=== PATIENT | female | born 1950 | race Caucasian/White ===

== ENCOUNTER 2016-12-03 20:30 | Emergency (ER) | payer OTHER, MEDICARE ==
[~2016-12-03] VITALS: Ht 162.6 cm; Wt 72.6 kg
[~2016-12-03 20:30] MED LIST: ATIVAN0.5 MG PO; GLUCOSAMINE &1 EAC1 PO; HYDROCHLOROTHIA25 MG PO; IPRAT-ALBUT 0.5-3 ML INH; LANTUS100 UNIT/1 SUBCUT; MOBIC15 MG PO; NASONEX17 GM NASLF; PHENERGAN25 M1 PO; PREDNISONE10 MG PO; PROAIR HFA8.5 GM INH; SYNTHROID125 MCG PO; ULTRAM50 MG PO; [UNRECOGNIZED DRUG - CODE] INH
[2016-12-04] MEDS ORDERED: ARAVA20 MG PO ×2 (16:00→16:31)
[2016-12-04] MEDS ORDERED: VISINE15 ML EYEBOTH (16:24)
[2016-12-04] MEDS ORDERED: NASONEX17 GM NASLF (16:24)
[2016-12-04] MEDS ORDERED: MOBIC15 MG PO (16:26)
[2016-12-04] MEDS ORDERED: DUONEB 3.0-0.5 M3 ML INH (16:27)
[2016-12-04] MEDS ORDERED: [UNRECOGNIZED DRUG - CODE] INH (16:27)
[2016-12-04] MEDS ORDERED: XOPENEX1.25 MG/3 INH (16:27)
[2016-12-04] MEDS ORDERED: PROAIR HFA8.5 GM INH (16:28)
[2016-12-04] MEDS ORDERED: LANTUS100 UNIT/1 SUBCUT (16:29)
[2016-12-04] MEDS ORDERED: GLUCOSAMINE &1 EAC1 PO (16:30)
[2016-12-04] MEDS ORDERED: HYDROCHLOROTHIA25 MG PO (16:30)
[2016-12-04] MEDS ORDERED: SYNTHROID125 MCG PO (16:30)
== END 2016-12-03 23:00 | disposition short-term general hospital (02) ==
LOC: ER 20:30
DX: K52.9 Noninfective gastroenteritis and colitis, unspecified (principal)
CPT/HCPCS: J2405

== ENCOUNTER 2016-12-04 14:49 | Inpatient (IN) | payer OTHER, MEDICARE ==
[~2016-12-04] VITALS: Ht 160 cm; Wt 75.8 kg
[2016-12-04] MEDS ORDERED: ARAVA20 MG PO ×2 (16:00→16:31)
[2016-12-04] MEDS ORDERED: NASONEX17 GM NASLF (16:24)
[2016-12-04] MEDS ORDERED: VISINE15 ML EYEBOTH (16:24)
[2016-12-04] MEDS ORDERED: MOBIC15 MG PO (16:26)
[2016-12-04] MEDS ORDERED: [UNRECOGNIZED DRUG - CODE] INH (16:27)
[2016-12-04] MEDS ORDERED: DUONEB 3.0-0.5 M3 ML INH (16:27)
[2016-12-04] MEDS ORDERED: XOPENEX1.25 MG/3 INH (16:27)
[2016-12-04] MEDS ORDERED: PROAIR HFA8.5 GM INH (16:28)
[2016-12-04] MEDS ORDERED: LANTUS100 UNIT/1 SUBCUT (16:29)
[2016-12-04] MEDS ORDERED: GLUCOSAMINE &1 EAC1 PO (16:30)
[2016-12-04] MEDS ORDERED: HYDROCHLOROTHIA25 MG PO (16:30)
[2016-12-04] MEDS ORDERED: SYNTHROID125 MCG PO (16:30)
[2016-12-06] MEDS ORDERED: ASPIRIN325 MG PO (13:21)
[2016-12-06] MEDS ORDERED: ULTRAM50 MG PO (13:24)
[2016-12-06] MEDS ORDERED: TYLENOL500 MG PO (13:25)
[2016-12-06] MEDS ORDERED: ECOTRIN325 MG PO (13:28)
[2016-12-06] MEDS ORDERED: KLOR-CON M2020 MEQ PO (13:29)
[2016-12-06] MEDS ORDERED: LIPITOR40 MG PO (13:36)
[2016-12-06] MEDS ORDERED: GLUCOSAMINE &1 EAC1 PO (13:46)
== END 2016-12-06 17:35 | disposition short-term general hospital (02) | DRG 69 ==
LOC: ER 14:49 → IP 16:45
PROVIDERS: ADMIT Family Medicine
PROC: 3E0F7GC Introduction of Other Therapeutic Substance into Respiratory Tract, Via Natural or Artificial Opening (ICD-10-PCS; principal; 2016-12-05)
PROC: B246ZZZ Ultrasonography of Right and Left Heart (ICD-10-PCS; principal; 2016-12-05)
DX: G45.8 Other transient cerebral ischemic attacks and related syndromes (principal); E11.9 Type 2 diabetes mellitus without complications; I10 Essential (primary) hypertension; E03.9 Hypothyroidism, unspecified; J44.9 Chronic obstructive pulmonary disease, unspecified; J45.909 Unspecified asthma, uncomplicated; M19.90 Unspecified osteoarthritis, unspecified site; M05.9 Rheumatoid arthritis with rheumatoid factor, unspecified; E78.5 Hyperlipidemia, unspecified; Z92.3 Personal history of irradiation; Z87.891 Personal history of nicotine dependence; R26.81 Unsteadiness on feet; R47.81 Slurred speech; Z79.4 Long term (current) use of insulin; K52.9 Noninfective gastroenteritis and colitis, unspecified
CPT/HCPCS: A9150; A9577; J1650; J1815; J2175; J2405; J3360; J3480; J8499

== ENCOUNTER → 2017-02-14 | Outpatient (CLI) | payer OTHER, MEDICARE ==
[~2017-02-14] MED LIST changes: +ARAVA20 MG PO; +ASPIRIN325 MG PO; +DUONEB 3.0-0.5 M3 ML INH; +ECOTRIN325 MG PO; +KLOR-CON M2020 MEQ PO; +LIPITOR40 MG PO; +TYLENOL500 MG PO; +VISINE15 ML EYEBOTH; +XOPENEX1.25 MG/3 INH
== END | disposition short-term general hospital (02) ==
LOC: CLRHEU 08:55
DX: M05.9 Rheumatoid arthritis with rheumatoid factor, unspecified (principal); M19.90 Unspecified osteoarthritis, unspecified site; Z79.899 Other long term (current) drug therapy

== ENCOUNTER → 2017-02-26 | Outpatient (CLI) | payer OTHER, MEDICARE | END | disposition short-term general hospital (02) | LOC: CLPULM 09:00 | DX: J44.9 Chronic obstructive pulmonary disease, unspecified (principal); J30.9 Allergic rhinitis, unspecified; M06.9 Rheumatoid arthritis, unspecified; E03.9 Hypothyroidism, unspecified; E78.5 Hyperlipidemia, unspecified; E66.9 Obesity, unspecified; I10 Essential (primary) hypertension; Z87.891 Personal history of nicotine dependence; Z85.3 Personal history of malignant neoplasm of breast; Z86.69 Personal history of other diseases of the nervous system and sense organs; Z92.3 Personal history of irradiation; Z98.890 Other specified postprocedural states ==